=== PATIENT | male | born 1980 | race Caucasian/White ===

== ENCOUNTER 2019-03-04 11:00 | Emergency (ER) | payer OTHER ==
[2019-03-04 11:04] VITALS: BMI 26.2
[2019-03-04 11:55] VITALS: BP 124/75; PULSE 66; RESP 16; TEMP 98.3; O2SAT 98
--- NOTE | 2019-03-04 12:23 | C.PDOC ---
History Of Present Illness 38 y/o male c/o upper back and shoulder pain, hurts to move shoulders for non specified period of time with tingling on forehead,. not taking anything at home for pain. pt also c/o fatigue. pt also c/o lumps on anterior bilateral forearms for an year. Janene Griffith band saw marker used. Time Seen by Provider: 03/04/19 11:22 Chief Complaint (Nursing): Headache History Per: Patient, Transportation Dispatcher (Janene Griffith band saw marker) History/Exam Limitations: language barrier Onset/Duration Of Symptoms: Days Current Symptoms Are (Timing): Still Present Severity: Moderate Quality: "Pain" Preceeding Symptoms: None Associated Symptoms: denies: Photophobia, Blurred Vision, Nausea, Vomiting Past Medical History Reviewed: Historical Data, Nursing Documentation, Vital Signs Vital Signs: Last Vital Signs Temp 98.3 F 03/04/19 11:55 Pulse 66 03/04/19 11:55 Resp 16 03/04/19 11:55 BP 124/75 03/04/19 11:55 Pulse Ox 98 03/04/19 11:55 - Medical History PMH: No Chronic Diseases Family History: States: Unknown Family Hx - Social History Hx Tobacco Use: Yes Hx Alcohol Use: No Hx Substance Use: No - Immunization History Hx Tetanus Toxoid Vaccination: No Hx Influenza Vaccination: No Hx Pneumococcal Vaccination: No Review Of Systems Constitutional: Negative for: Fever, Chills ENT: Negative for: Throat Pain Cardiovascular: Negative for: Chest Pain Respiratory: Negative for: Cough Gastrointestinal: Negative for: Vomiting, Abdominal Pain Musculoskeletal: Positive for: Neck Pain, Shoulder Pain, Back Pain, Other (headache) Physical Exam - Physical Exam Appears: Non-toxic, No Acute Distress Skin: Warm, Dry, Other (three noin tender mobile masses under skin on right anterior forearm and 2 similar ones on left anterior forearm, no overlying erythema or warmth. ) Head: Atraumatic, Normacephalic Eye(s): bilateral: Normal Inspection, PERRL, EOMI, Other (conjuctival normal color, not pale) Ear(s): Bilateral: Normal Oral Mucosa: Moist Neck: No Midline Cervical Tenderness, Supple Cardiovascular: Rhythm Regular, No Murmur Respiratory: No Decreased Breath Sounds, No Rales, No Rhonchi, No Wheezing Back: Other (tender to bilateral trazpezius muscles. ) Extremity: No Normal ROM (tender rom at shoulders) Extremity: Bilateral: Atraumatic Pulses: Left Radial: Normal, Right Radial: Normal Neurological/Psych: Oriented x3, Normal Speech, Normal Cognition, Normal Motor, Normal Sensation ED Course And Treatment O2 Sat by Pulse Oximetry: 98 Medical Decision Making Medical Decision Making: pt with multiple complaints; was here in ed with daughter for several hours in no acute distress, moving around without any difficulty, smiling, laughing, playing with daughter. now c/o shoulder and back and neck pain, lumps to arms and fatigue. pt with tender trapezius muscles and upper back, chronic lumps on arm {possible lipomas). motrin given and will d/c with outpt clinic follow up for full checkup Disposition Counseled Patient/Family Regarding: Diagnosis, Need For Followup, Smoking Cessation - Disposition Referrals: [facility] [Outside] [facility] [Outside] Disposition: HOME/ ROUTINE Disposition Time: 12:40 Condition: GOOD Additional Instructions: Please call [facility] belt finisher service or clinic to make an outpatient medical clinic appointment for a check up. Recommend referral from clinic to a ladies' hat trimmer. Stop smoking. Take ibuprofen for pain as directed. Prescriptions: Ibuprofen [Motrin] 600 mg PO TID #30 tab Instructions: Muscle Strain (DC) Forms: [facility] ([place]wana), General Discharge Instructions - Clinical Impression Clinical Impression: Muscle strain
== END 2019-03-04 13:01 | disposition home or self-care (01) ==
LOC: C.ER 11:00 → EDBD 11:00 → C.ER 13:01
DX: S46.919A Strain of unspecified muscle, fascia and tendon at shoulder and upper arm level, unspecified arm, initial encounter (principal); X58.XXXA Exposure to other specified factors, initial encounter; Z72.0 Tobacco use